=== PATIENT | female | born 1990 | race African-American/Black ===

== ENCOUNTER 2016-06-01 15:56 | Emergency (ER) | payer OTHER ==
[2016-06-01 16:03] VITALS: BP 124/70; PULSE 84; RESP 20; TEMP 97.8
[2016-06-01] MEDS ORDERED: HYDROcodone/APAP 5-325MG 1 EACH TAB PO STA (16:44)
--- NOTE | 2016-06-01 16:55 | ED ---
General Adult HPI - General Chief complaint: Dental/Oral Stated complaint: Dental Time Seen by Provider: 06/01/16 16:07 Source: patient, RN notes reviewed Mode of arrival: ambulatory Limitations: no limitations - History of Present Illness Initial comments: This is a 25-year-old female presents with pain from wisdom tooth 3 days. Patient states she sees an oral surgeon in 2 days to get her wisdom teeth taken out. Patient denies any fever/chills but states it hurts to eat or open her mouth. Patient has been trying Advil for the pain but this has not helped. Patient denies any chance of being . Patient denies any recent shortness breath, chest pain, abdominal pain, nausea/vomiting/diarrhea, back pain, numbness, tingling, hematuria, headache, or visual changes, or any other complaints. - Related Data Home Medications Medication Instructions Recorded Confirmed Biotin 5 mg PO DAILY 06/01/16 06/01/16 Previous Rx's Medication Instructions Recorded HYDROcodone/APAP 5-325MG [[place] 1 tab PO Q6HR #12 tab 06/01/16 5-325] Penicillin V Potassium [Pen Vee K] 500 mg PO BID 5 Days 06/01/16 Allergies Allergy/AdvReac Type Severity Reaction Status Date / Time No Known Allergies Allergy Verified 06/01/16 16:28 Review of Systems ROS Statement: Those systems with pertinent positive or pertinent negative responses have been documented in the HPI. ROS Other: All systems not noted in ROS Statement are negative. Past Medical History Past Medical History: No Reported History History of Any Multi-Drug Resistant Organisms: None Reported Past Surgical History: Ear Surgery Additional Past Surgical History / Comment(s): CYST REMOVAL, LEFT AXILLA Past Psychological History: No Psychological Hx Reported Smoking Status: Current every day smoker Past Alcohol Use History: Occasional Past Drug Use History: None Reported General Exam - General Exam Comments Initial Comments: General: The patient is awake and alert, in no distress, and does not appear acutely ill. Eye: Pupils are equal, round and reactive to light, extra-ocular movements are intact. No nystagmus. There is normal conjunctiva bilaterally. No signs of icterus. Ears: TMs pink and pearly with intact cone of light bilaterally. Normal external ear canals Nose: Nasal turbinates pink and moist Mouth and throat: Tooth #32 is coming in. There is mild erythema but no purulent drainage. This tooth is tender to palpation. Patient has mild right- sided facial swelling. There are moist mucous membranes and no oral lesions. Neck: The neck is supple, there is no tenderness or JVD. Cardiovascular: There is a regular rate and rhythm. No murmur, rub or gallop is appreciated. Respiratory: Lungs are clear to auscultation, respirations are non-labored, breath sounds are equal. No wheezes, stridor, rales, or rhonchi. Musculoskeletal: Normal ROM, no tenderness. Strength 5/5. Sensation intact. Radial pulses equal bilaterally 2+. Neurological: A&O x 3. CN II-XII intact, There are no obvious motor or sensory deficits. Coordination appears grossly intact. Speech is normal. Skin: Skin is warm and dry and no rashes or lesions are noted. Psychiatric: Cooperative, appropriate mood & affect, normal judgment. Limitations: no limitations Course Vital Signs 06/01/16 16:01 Temperature 97.8 F Pulse Rate 84 Respiratory 20 Rate Blood Pressure 124/70 O2 Sat by Pulse 99 Oximetry Medical Decision Making - Medical Decision Making This is a 25-year-old female with pain from her wisdom tooth. On physical exam patient is afebrile in the EC. Patient to #32 is coming in. There is mild erythema but no purulent drainage. This tooth is tender to palpation. Patient has mild right-sided facial swelling. There are moist mucous membranes and no oral lesions. Discussed that patient was put on a course of antibiotics and given a prescription for [place]. I discussed continuation of Advil and warm compresses to the area. Discussed that patient needs to follow-up with the oral surgeon as already scheduled in 2 days. I discussed return parameters. Discussed that patient should follow up with PCP in one to 2 days or return to the EC for any worsening symptoms or for any further concerns. Patient was receptive to this plan and patient will be discharged home. Disposition Clinical Impression: Pain, dental Disposition: HOME SELF-CARE Condition: Good Instructions: Toothache (ED) Additional Instructions: Please use antibiotics as prescribed. Please use pain medication as prescribed. May use [id number] Tylenol or Motrin for pain. Use warm compresses to the area for pain. Please follow-up with dentist as soon as possible. Please follow up with PCP tomorrow or return to the EC for any worsening symptoms or for any further concerns.[facility] dental plan: [id number] [place] [address], . [employer]: Have to pay $50 for x-rays and the rest is covered. [phone]. Prescriptions: HYDROcodone/APAP 5-325MG [[place] 5-325] 1 tab PO Q6HR #12 tab Penicillin V Potassium [Pen Vee K] 500 mg PO BID 5 Days Referrals: Mariam Patterson MD [Primary Care Provider] - 1-2 days Time of Disposition: 16:55
== END 2016-06-01 17:00 | disposition home or self-care (01) ==
LOC: EC 15:56
DX: K08.89 Other specified disorders of teeth and supporting structures (principal); R22.0 Localized swelling, mass and lump, head; F17.200 Nicotine dependence, unspecified, uncomplicated; Z79.899 Other long term (current) drug therapy
CPT/HCPCS: 99282

== ENCOUNTER → 2018-07-17 | Outpatient (CLI) | payer OTHER ==
--- NOTE | 2018-07-17 15:00 | XR ---
EXAMINATION TYPE: XR lumbar spine 2 or 3V DATE OF EXAM: 07/17/2018 CLINICAL HISTORY: Pain after lifting injury June 23 TECHNIQUE: Frontal and lateral images of the lumbar spine are obtained. COMPARISON: None. FINDINGS: There are 5 lumbar type vertebral bodies identified. The lumbar spine shows satisfactory alignment without evidence of acute fracture or dislocation. Vertebral body heights and disk space he ights are within normal limits. The overlying soft tissue appears unremarkable. IMPRESSION: No acute fracture or dislocation is seen in the lumbar spine.
== END | disposition home or self-care (01) ==
LOC: RADXRMAIN 14:39
PROVIDERS: ATTEND Emergency Medicine
DX: S39.012D Strain of muscle, fascia and tendon of lower back, subsequent encounter (principal)
CPT/HCPCS: 72100

== ENCOUNTER 2021-11-04 01:26 | Emergency (ER) | payer OTHER ==
[2021-11-04 01:30] VITALS: RESP 19; TEMP 97.9
--- NOTE | 2021-11-04 02:31 | ED ---
Female Urogenital HPI - General Chief complaint: Vaginal Bleeding Stated complaint: 8 wks , bleeding Time Seen by Provider: 11/04/21 01:54 Source: patient Mode of arrival: ambulatory - History of Present Illness Initial comments: This patient is a 31-year-old woman who presents with complaint that she is having some light vaginal bleeding. Patient states that it had come on this evening. She does note that she is approximately 8 weeks . She did have positive test last week and then was followed with ultrasound earlier today. This evening after using bathroom she noticed there was small amount of blood when wiping. Patient is denying any other symptoms. No abdominal pain. No pelvic cramping or discharge. No clots. MD Complaint: vaginal bleeding -: hour(s) Severity scale (1-10): 0 Improves with: none Worsens with: none Patient : Yes Number of weeks : 8 Associated Symptoms: denies other symptoms - Related Data Sexually active: Yes : 1 Para: 0 A: 0 Home Medications Medication Instructions Recorded Confirmed Biotin 5 mg PO DAILY 06/01/16 06/01/16 Previous Rx's Medication Instructions Recorded HYDROcodone/APAP 5-325MG [[place] 1 tab PO Q6HR #12 tab 06/01/16 5-325] Penicillin V Potassium [Pen Vee K] 500 mg PO BID 5 Days tab 06/01/16 Allergies Allergy/AdvReac Type Severity Reaction Status Date / Time No Known Allergies Allergy Verified 11/04/21 01:30 Review of Systems ROS Statement: Those systems with pertinent positive or pertinent negative responses have been documented in the HPI. ROS Other: All systems not noted in ROS Statement are negative. Constitutional: Denies: fever, chills Respiratory: Denies: dyspnea Cardiovascular: Denies: chest pain, palpitations, edema Gastrointestinal: Denies: abdominal pain, vomiting, diarrhea Genitourinary: Reports: as per HPI, abnormal menses. Denies: dysuria, frequency, hematuria Musculoskeletal: Denies: back pain Skin: Denies: rash Past Medical History Past Medical History: No Reported History History of Any Multi-Drug Resistant Organisms: None Reported Past Surgical History: Ear Surgery Additional Past Surgical History / Comment(s): CYST REMOVAL, LEFT AXILLA Past Psychological History: No Psychological Hx Reported Smoking Status: Never smoker Past Alcohol Use History: Occasional Past Drug Use History: None Reported General Exam General appearance: alert, in no apparent distress Head exam: Present: atraumatic, normocephalic Eye exam: Present: normal appearance Respiratory exam: Present: normal lung sounds bilaterally. Absent: respiratory distress, wheezes, rales, rhonchi, stridor Cardiovascular Exam: Present: regular rate, normal rhythm, normal heart sounds. Absent: systolic murmur, diastolic murmur, rubs, gallop GI/Abdominal exam: Present: soft. Absent: distended, tenderness, guarding, rebound, rigid, mass Extremities exam: Present: normal inspection, normal capillary refill. Absent: pedal edema, calf tenderness Back exam: Absent: CVA tenderness (R), CVA tenderness (L) Neurological exam: Present: alert Skin exam: Present: warm, dry, intact, normal color. Absent: rash Course Vital Signs 11/04/21 11/04/21 01:27 02:10 Temperature 97.9 F Pulse Rate 71 80 Respiratory 19 Rate Blood Pressure 142/88 128/74 O2 Sat by Pulse 100 Oximetry Medical Decision Making - Medical Decision Making This patient is a 31-year-old woman in her early with light vaginal bleeding. Discussed that ultrasound is not currently present and the patient states that her symptoms are only very mild and she will follow with her flight attendant. We did offer blood and urine testing as well as ultrasound and currently patient declines. She will return should symptoms recur or any new symptoms develop. Disposition Clinical Impression: Threatened Disposition: HOME SELF-CARE Condition: Fair Instructions (If sedation given, give patient instructions): Threatened Miscarriage (ED) Is patient prescribed a controlled substance at d/c from ED?: No Referrals: Merced Valera MD [Primary Care Provider] - 1-2 days
[2021-11-04 02:52] VITALS: BP 128/74; PULSE 80
== END 2021-11-04 02:52 | disposition home or self-care (01) ==
LOC: EC 01:26
DX: O20.0 Threatened abortion (principal); Z3A.08 8 weeks gestation of pregnancy
CPT/HCPCS: 99283